=== PATIENT | female | born 1995 | race Caucasian/White ===

== ENCOUNTER 2022-12-01 10:07 | Emergency (ER) | payer MEDICAID ==
[~2022-12-01] VITALS: Ht 170.2 cm; Wt 79.5 kg
[2022-12-01 11:24] LABS: EOSINOPHILS % (AUTO) 0.4 % (0-6); MEAN CORPUSCULAR HEMOGLOBIN 30.8 PG (27.0-31.0); MONOCYTES # (AUTO) 0.4 X10'3 (0-0.9)
[2022-12-01 11:27] LABS: BASOPHILS % (AUTO) 0.5 % (0-1); HEMATOCRIT 41.3 % (35.0-45.0); HEMOGLOBIN 14.1 g/dl (12.0-16.0); LYMPHOCYTES # (AUTO) 1.3 X10'3 (1.1-4.8); LYMPHOCYTES % (AUTO) 13.9 % (21-51); MEAN CORPUSCULAR HGB CONC 34.1 g/dL (33.0-36.5); MEAN CORPUSCULAR VOLUME 90.4 FL (78-98); MEAN PLATELET VOLUME 7.6 FL (7.4-10.4); MONOCYTES % (AUTO) 4.5 % (2-12); NEUTROPHILS # (AUTO) 7.5 X10'3 (1.8-7.7); NEUTROPHILS % (AUTO) 80.7 % (42-75); PLATELET COUNT 267 X10'3 (140-440); RED BLOOD COUNT 4.57 X10'6 (4.20-5.60); RED CELL DISTRIBUTION WIDTH 13.7 % (11.5-14.5); WHITE BLOOD COUNT 9.3 X10'3 (4.5-11.0)
[2022-12-01] MEDS ORDERED: ondansetron 4mg rapidly disintigrating tab PO ONE (11:30)
[2022-12-01 11:36] LABS: ALANINE AMINOTRANSFERASE 10 U/L (12-78); ALBUMIN 4.3 G/DL (3.4-5.0); ALBUMIN/GLOBULIN RATIO 1.3 (1.1-1.5); ALKALINE PHOSPHATASE 65 IU/L (46-116); ANION GAP 11 (8-16); ASPARTATE AMINO TRANSFERASE 19 U/L (10-37); BILIRUBIN,TOTAL 0.3 MG/DL (0.1-1.0); BLOOD UREA NITROGEN 11 MG/DL (7-18); BUN/CREATININE RATIO 11.7 (6.6-38.0); CALCIUM 9.1 MG/DL (8.5-10.1); CHLORIDE 105 MMOL/L (99-107); CREATININE 0.94 MG/DL (0.40-0.90); GLUCOSE 138 MG/DL (70-104); LIPASE 137 U/L (73-393); POTASSIUM 3.4 MMOL/L (3.5-5.1); SODIUM 136 MMOL/L (135-145); TOTAL CARBON DIOXIDE 19.9 MMOL/L (24-32); TOTAL PROTEIN 7.6 G/DL (6.4-8.2); eGFR 71 ML/MIN
[2022-12-01 11:47] VITALS: BP 116/57
[2022-12-01] MEDS ORDERED: ketorolac trometh. 30mg/ml inj. IV ONE (12:20)
[2022-12-01] MEDS ORDERED: normal saline 1000ml 1,000 ML IV ONE (12:20)
[2022-12-01] MEDS ORDERED: famotidine/PF 10 mg/ml inj IV ONE (12:20)
[2022-12-01] MEDS ORDERED: proCHLORperazine 10 MG/2 ml inj IV ONE (12:20)
[2022-12-01] MEDS ORDERED: ketorolac tromethamine 15mg/ml inj. IV ONE (12:25)
[2022-12-01] MEDS ORDERED: mag hydrox/Alum hydrox/simeth 30ml oral suspension PO ONE (13:35)
[2022-12-01] MEDS ORDERED: LIDOcaine Viscous 15ml cup MM ONE (13:35)
[2022-12-01 13:39] LABS: HCG SERUM QL NEGATIVE
[2022-12-01] MEDS ORDERED: PANT20TA18 PO (13:48)
[2022-12-01] MEDS ORDERED: ONDA8TAB13 PO (13:48)
[2022-12-01] MEDS ORDERED: pantoprazole 40mg IV 80 MG in normal saline 100ml IV soln 100 ML IV ONE (13:50)
== END 2022-12-01 15:22 | disposition home or self-care (01) ==
LOC: ER 10:08
DX: R11.2 Nausea with vomiting, unspecified (principal); R10.84 Generalized abdominal pain; F12.90 Cannabis use, unspecified, uncomplicated; Z79.899 Other long term (current) drug therapy
CPT/HCPCS: 36415; 80053; 83690; 84703; 85025; 87502; 87503; 96361; 96365; 96375; 99284; C9113; J0780; J1885; J3490; J7030

== ENCOUNTER 2022-12-05 08:01 | Emergency (ER) | payer MEDICAID ==
[~2022-12-05] VITALS: Ht 174 cm; Wt 81.8 kg
[~2022-12-05 08:01] MED LIST: ONDA8TAB13 PO; PANT20TA18 PO
[2022-12-05] MEDS ORDERED: normal saline 1000ML IV soln IVB ONE (08:40)
[2022-12-05] MEDS ORDERED: dextrose 5%-normal saline 1,000 ML IV ONE (08:40)
[2022-12-05] MEDS ORDERED: ondansetron/PF 4mg/2ml inj IV ONE (08:50)
[2022-12-05] MEDS ORDERED: diphenhydrAMINE 50 mg/ml inj IV ONE (08:50)
[2022-12-05 09:58] LABS: BASOPHILS % (AUTO) 0.4 % (0-1); EOSINOPHILS # (AUTO) 0.1 X10'3 (0-0.9); EOSINOPHILS % (AUTO) 0.9 % (0-6); HEMATOCRIT 44.4 % (35.0-45.0); HEMOGLOBIN 14.6 g/dl (12.0-16.0); LYMPHOCYTES # (AUTO) 1.6 X10'3 (1.1-4.8); LYMPHOCYTES % (AUTO) 25.6 % (21-51); MEAN CORPUSCULAR HEMOGLOBIN 30.4 PG (27.0-31.0); MEAN CORPUSCULAR HGB CONC 32.8 g/dL (33.0-36.5); MEAN CORPUSCULAR VOLUME 92.6 FL (78-98); MEAN PLATELET VOLUME 7.9 FL (7.4-10.4); MONOCYTES # (AUTO) 0.6 X10'3 (0-0.9); MONOCYTES % (AUTO) 8.9 % (2-12); NEUTROPHILS # (AUTO) 4.1 X10'3 (1.8-7.7); NEUTROPHILS % (AUTO) 64.2 % (42-75); PLATELET COUNT 262 X10'3 (140-440); RED BLOOD COUNT 4.79 X10'6 (4.20-5.60); RED CELL DISTRIBUTION WIDTH 13.9 % (11.5-14.5); WHITE BLOOD COUNT 6.4 X10'3 (4.5-11.0)
[2022-12-05 11:06] LABS: URINE HCG NEGATIVE (NEG)
[2022-12-05 11:10] LABS: COLOR,URINE STRAW (Yellow); GLUCOSE, URINE NEGATIVE (Neg); KETONES,URINE TRACE mg/dl (Neg); LEUKOCYTE ESTERASE ,URINE SMALL (Neg); NITRITES, URINE NEGATIVE (Neg); OCCULT BLOOD,URINE SMALL (Neg); PH,URINE 6.5 (4.8-8.0); PROTEIN,URINE NEGATIVE (Neg); UROBILINOGEN,URINE 0.2 E.U/dL (0.2-1.0)
[2022-12-05 11:16] LABS: OCCULT BLOOD STOOL NEGATIVE (Neg)
[2022-12-05 11:22] LABS: CLARITY,URINE SLIGHTLY CLOUDY (Clear); UA COLLECTION TYPE VOIDED
[2022-12-05 11:23] LABS: BACTERIA,URINE 4+ /HPF (Neg); RBC,URINE 0-2 /HPF (0-2)
[2022-12-05 11:24] LABS: MUCUS STRANDS NONE SEEN /LPF (Neg); SQUAMOUS EPITHELIAL CELL,UR MODERATE /LPF (FEW)
[2022-12-05 11:59] LABS: ALANINE AMINOTRANSFERASE 18 U/L (12-78); ALBUMIN 3.7 G/DL (3.4-5.0); ALBUMIN/GLOBULIN RATIO 1.3 (1.1-1.5); ALKALINE PHOSPHATASE 54 IU/L (46-116); ANION GAP 8 (8-16); ASPARTATE AMINO TRANSFERASE 15 U/L (10-37); BILIRUBIN,TOTAL 0.4 MG/DL (0.1-1.0); BLOOD UREA NITROGEN 5 MG/DL (7-18); BUN/CREATININE RATIO 5.6 (6.6-38.0); CALCIUM 8.4 MG/DL (8.5-10.1); CHLORIDE 104 MMOL/L (99-107); CREATININE 0.89 MG/DL (0.40-0.90); GLUCOSE 174 MG/DL (70-104); LIPASE 126 U/L (73-393); POTASSIUM 3.1 MMOL/L (3.5-5.1); SODIUM 138 MMOL/L (135-145); TOTAL CARBON DIOXIDE 25.9 MMOL/L (24-32); TOTAL PROTEIN 6.5 G/DL (6.4-8.2); eGFR 76 ML/MIN
[2022-12-05] MEDS ORDERED: potassium Cl 20 mEq SR tablet PO ONE (13:30)
[2022-12-05] MEDS ORDERED: ONDA4TAB12 PO (14:03)
[2022-12-05] MEDS ORDERED: SULF1TAB49 PO (14:03)
[2022-12-05 14:24] VITALS: BP 119/66
[2022-12-05] MEDS ORDERED: magnesium Cl slow-release 64mg tablet PO SCH (20:00)
== END 2022-12-05 14:25 | disposition home or self-care (01) ==
LOC: ER 08:01
DX: R11.15 Cyclical vomiting syndrome unrelated to migraine (principal); N39.0 Urinary tract infection, site not specified; E87.6 Hypokalemia; G89.29 Other chronic pain; F12.90 Cannabis use, unspecified, uncomplicated; Z79.2 Long term (current) use of antibiotics; Z79.899 Other long term (current) drug therapy
CPT/HCPCS: 36415; 80053; 81001; 81025; 82272; 83690; 85025; 87077; 87088; 87186; 96361; 96374; 99283; J1200; J7030; J7042; J7070